=== PATIENT | female | born 1995 | race Two or more races ===

== ENCOUNTER 2019-05-02 09:03 | Inpatient (IN) | payer MEDICAID ==
[~2019-05-02] VITALS: Ht 157.5 cm; Wt 60.6 kg
[2019-05-02 09:50] LABS: Urine Bacteria FEW /hpf (None Seen); Urine Blood Negative /uL (Negative); Urine Mucus FEW (None Seen); Urine Specific Gravity 1.008 (1.001-1.035); Urine WBC <1 /hpf (0 - 5)
[2019-05-02 10:32] LABS: Basophils # (auto) 0 uL; Basophils % (auto) 0.2 % (0.0-2.0); Eosinophils # (auto) 0 uL; Eosinophils % (auto) 0.3 % (0.0-7.0); Mean Corpuscular Hemoglobin 26.8 pg (28.0-32.0); Mean Corpuscular Hgb Conc. 32.5 g/dL (32.0-36.0); Neutrophils % (auto) 78.3 % (37.0-80.0); Nucleated Red Blood Cells % 0.1 %
[2019-05-02 10:35] LABS: Hematocrit 41.3 % (36.0-46.0); Hemoglobin 13.4 g/dL (12.2-16.2); Lymphocytes % (auto) 13.2 % (10.0-50.0); Mean Corpuscular Volume 82.4 fL (80.0-100.0); Monocytes # (auto) 0.6 uL; Neutrophils # (auto) 5.9 uL; Platelet Count (auto) 215 10^3/uL (140-450); Red Blood Cells 5.01 10^6/uL (4.0-5.20); Red Cell Distribution Width 15.1 % (11.8-14.3); White Blood Cell 7.5 10^3/uL (4.4-10.8)
[2019-05-02 10:45] LABS: Alanine Aminotransferase 191 U/L (13-56); Anion Gap 6 (5-15); Aspartate Aminotransferase 382 U/L (15-37); BUN/Creatinine Ratio 7.9; Blood Urea Nitrogen 6 mg/dL (7-18); Calcium 8.7 mg/dL (8.5-10.1); Carbon Dioxide 24 mmol/L (21-32); Chloride 110 mmol/L (98-107); GFR African American 119 mL/min; GFR Non-African American 99 mL/min; Glucose 92 mg/dL (74-106); Potassium 3.8 mmol/L (3.5-5.1); Sodium 140 mmol/L (136-145)
[2019-05-02 10:53] LABS: Alkaline Phosphatase 68 U/L (45-117); Bilirubin, Total 1.6 mg/dL (0.2-1.0); Total Protein 7.7 g/dL (6.4-8.2)
[2019-05-02] MEDS ORDERED: SODIUM CHLORIDE 0.9% 1,000 ML IVB ONE (12:30)
[2019-05-02] MEDS ORDERED: cefTRIAXone 1GM/50ML D5W 50 ML IV ONE (12:30)
[2019-05-02] MEDS ORDERED: MORPHINE SULFATE 4 MG/ML SYR/VIAL IV PRN ×2 (13:45)
[2019-05-02] MEDS: SODIUM CHLORIDE 0.9% 1,000 ML IV SCH ×2 (13:45→23:45)
[2019-05-02 13:46] LABS: INR 0.95 (0.9-1.15); Partial Thromboplastin Time 29.8 sec (23.64-32.05)
[2019-05-02] MEDS: metroNIDAZOLE 500MG/100ML 100 ML IV SCH ×2 (14:17→21:15)
[2019-05-02] MEDS: FAMOTIDINE (10MG/ML) 2ML VL IV SCH (14:17)
--- NOTE | 2019-05-02 16:58 | NUR ---
ER TRANSFER RECEIVED REPORT FROM ER NURSE. PT WAS WHEELED TO ROOM WITH NO DISTRESS. INSTRUCTED PT ON POC AND TO CALL FOR ASSISTANCE PRN.
[2019-05-02 17:17] VITALS: BP 108/66
--- NOTE | 2019-05-02 21:29 | NUR ---
Patient c/o pain to abdomen and both knees, Morphine 2mg given, after Morphine was given patient was yelling saying "my head, my head" holding her head on both sides. Patient's b/p up to 148/78, HR 130's 02 Sat 97% RA. Reassurance given, support given. at bedside. Patient calmed down after a few minutes.
--- NOTE | 2019-05-02 21:38 | NUR ---
Dr. Jones at bedside, informed of reaction to Morphine Sulfate IV.
[2019-05-02 21:44] VITALS: BP 112/73
[2019-05-02] MEDS ORDERED: fentaNYL CITRATE 100 MCG/2 ML VL IM ONE (22:00)
[2019-05-03] MEDS: FAMOTIDINE (10MG/ML) 2ML VL IV SCH ×2 (01:57→13:06)
[2019-05-03 05:33] VITALS: BP 96/59
[2019-05-03 05:36] VITALS: BP 96/59
[2019-05-03] MEDS: metroNIDAZOLE 500MG/100ML 100 ML IV SCH ×3 (06:34→21:34)
[2019-05-03 08:01] LABS: BUN/Creatinine Ratio 7.7; Potassium 3.8 mmol/L (3.5-5.1)
[2019-05-03 08:02] LABS: Bilirubin, Total 1.1 mg/dL (0.2-1.0); Calcium 7.8 mg/dL (8.5-10.1); Total Protein 5.9 g/dL (6.4-8.2)
[2019-05-03 08:30] VITALS: BP 99/45
[2019-05-03] MEDS: cefTRIAXone 1GM/50ML D5W 50 ML IV SCH (08:51)
[2019-05-03] MEDS: SODIUM CHLORIDE 0.9% 1,000 ML IV SCH ×2 (09:00→19:43)
--- NOTE | 2019-05-03 09:33 | NUR ---
Called Nuclear Medicine, phone on voicemail.
--- NOTE | 2019-05-03 10:12 | NUR ---
Paged the House Sup.
--- NOTE | 2019-05-03 10:16 | NUR ---
Called Nuclear Medicine again, phone on voicemail. Left a message to call back for NM HIDA Scan.
--- NOTE | 2019-05-03 10:23 | NUR ---
Dr. Díaz called back. made aware patient has been on NPO after midnight because of pending NM HIDA Scan, no answer at Nuclear Medicine. Dr. Díaz ordered to keep patient NPO for now, he will come over to see the patient.
--- NOTE | 2019-05-03 10:45 | NUR ---
Patient in the bathroom at this time.
[2019-05-03] MEDS: ACETAMINOPHEN/CODEINE#3 (300/30mg) TAB PO PRN ×2 (10:55→15:09)
--- NOTE | 2019-05-03 10:55 | NUR ---
Patient stated her stomach pain level at 10/10 at this time aggravated by her menstrual period. Tylenol #3 given for pain with small sips of water.
--- NOTE | 2019-05-03 12:29 | NUR ---
Patient stated she feels dizzy because she's hungry, stated she needs to eat something. Dr. Díaz made aware, and Nuclear Medicine is not answering, patient has order for HIDA Scan. MD ordered Clear Liquids then NPO after midnight. MD ordered Urine Bacterial Culture.
[2019-05-03 13:00] VITALS: BP 136/81
--- NOTE | 2019-05-03 13:10 | NUR ---
Patient stated she has her menstrual period today, first day. Urine specimen bottle at bedside for urine bacterial culture. Will inform MD.
--- NOTE | 2019-05-03 15:09 | NUR ---
Patient stated her pain level at 10/10 at this time. Tylenol #3 given for pain as ordered. and son at bedside.
[2019-05-03] MEDS: PROMETHAZINE HCL 25 MG/ML 1ML IV PRN (16:14)
--- NOTE | 2019-05-03 16:14 | NUR ---
Patient stated she's nauseous. Phenergan 12.5 mg IVP given for nausea as ordered.
--- NOTE | 2019-05-03 16:43 | NUR ---
Called Laboratory if it's okay to send a urine specimen for Urine Bacterial Culture even if patient has menstrual period today. Laboratory said it's okay but if there's an issue, the Microbiology will call back.
--- NOTE | 2019-05-03 16:43 | NUR ---
Informed the patient to press the call light when she has the urine specimen. and son at bedside.
[2019-05-03 16:59] VITALS: BP 108/73
[2019-05-03 22:00] VITALS: BP 99/61
[2019-05-04] MEDS: FAMOTIDINE (10MG/ML) 2ML VL IV SCH ×2 (02:33→09:48)
[2019-05-04 05:32] VITALS: BP 101/56
[2019-05-04 05:48] LABS: Basophils # (auto) 0 uL; Basophils % (auto) 0.5 % (0.0-2.0); Eosinophils # (auto) 0.1 uL; Eosinophils % (auto) 1.5 % (0.0-7.0); Hematocrit 35.1 % (36.0-46.0); Hemoglobin 11.5 g/dL (12.2-16.2); Lymphocytes # (auto) 1.6 uL; Lymphocytes % (auto) 26.3 % (10.0-50.0); Mean Corpuscular Hemoglobin 27.4 pg (28.0-32.0); Mean Corpuscular Hgb Conc. 32.8 g/dL (32.0-36.0); Mean Corpuscular Volume 83.4 fL (80.0-100.0); Monocytes # (auto) 0.7 uL; Neutrophils # (auto) 3.7 uL; Neutrophils % (auto) 60.7 % (37.0-80.0); Nucleated Red Blood Cells % 0.1 %; Platelet Count (auto) 182 10^3/uL (140-450); Red Cell Distribution Width 15.3 % (11.8-14.3); White Blood Cell 6.1 10^3/uL (4.4-10.8)
[2019-05-04 05:57] LABS: Calcium 7.9 mg/dL (8.5-10.1); Potassium 3.7 mmol/L (3.5-5.1)
[2019-05-04 06:00] LABS: BUN/Creatinine Ratio 9.1
[2019-05-04] MEDS: metroNIDAZOLE 500MG/100ML 100 ML IV SCH ×3 (06:02→22:09)
[2019-05-04] MEDS: SODIUM CHLORIDE 0.9% 1,000 ML IV SCH ×2 (06:02→16:20)
[2019-05-04 08:35] VITALS: BP 131/89
[2019-05-04] MEDS: cefTRIAXone 1GM/50ML D5W 50 ML IV SCH (09:01)
[2019-05-04 10:04] LABS: Hepatitis B Surface Antibody Negative
[2019-05-04 10:18] LABS: Hepatitis A Total Antibody Positive
[2019-05-04 12:30] VITALS: BP 113/61
[2019-05-04] MEDS ORDERED: ceFAZolin 1GM/50ML 50 ML IV ONE (14:02)
--- NOTE | 2019-05-04 14:04 | NUR ---
TAKEN TO PRE OP VIA BED AND SON AT BEDSIDE. REPORT GIVEN TO SCOTT Bhatia
[2019-05-04] MEDS: POVIDONE IODINE 5% TOPICAL CREAM TOP ONE ×2 (14:05→14:55)
[2019-05-04] MEDS ORDERED: MIDAZOLAM HCL 1MG/1ML-2 ML VIAL ONE (14:17)
[2019-05-04] MEDS ORDERED: ROCURONIUM 10MG/ML 10ML VIAL IV ONE (14:17)
[2019-05-04] MEDS ORDERED: fentaNYL CITRATE 100 MCG/2 ML VL ONE ×2 (14:17→15:25)
[2019-05-04] MEDS ORDERED: PROPOFOL 10 MG/ML 20 ML IV ONE (14:26)
[2019-05-04] MEDS: fentaNYL CITRATE 100 MCG/2 ML VL IV PRN ×4 (15:30→16:00)
[2019-05-04] MEDS ORDERED: ePHEDrine SULFATE 50 MG/ML AMP IV PRN (15:30)
[2019-05-04] MEDS ORDERED: hydrALAZINE HCL 20 MG/ML VL IV PRN (15:30)
[2019-05-04] MEDS ORDERED: ONDANSETRON HCL 4 MG/2 ML VIAL IV PRN (15:30)
--- NOTE | 2019-05-04 16:18 | NUR ---
BACK TO ROOM 3 DRESSINGS INTACT CLEAN AND DRY AT BEDSIDE. PATIENT STATES PAIN 10/10
[2019-05-04] MEDS: PROMETHAZINE HCL 25 MG/ML 1ML IV PRN (16:44)
[2019-05-04 17:01] LABS: Hepatitis B Core Total AB Negative
[2019-05-04 17:02] LABS: Hepatitis B Surface Antigen Negative (Negative); Hepatitis C Antibody Negative (Negative)
--- NOTE | 2019-05-04 19:00 | NUR ---
Opening Shift Note Assumed care of patient, awake and alert. Family on bedside. Abdominal pain 5/10. Pt will ask for pain meds when is getting worse Instructed on POC and to call for assist PRN, will continue to monitor for changes Q1hr and PRN.
[2019-05-04] MEDS: ACETAMINOPHEN/CODEINE#3 (300/30mg) TAB PO PRN ×2 (19:39→23:46)
[2019-05-04 22:00] VITALS: BP 103/51
[2019-05-05] MEDS: SODIUM CHLORIDE 0.9% 1,000 ML IV SCH ×3 (01:45→21:45)
[2019-05-05] MEDS: FAMOTIDINE (10MG/ML) 2ML VL IV SCH ×2 (02:28→14:01)
[2019-05-05 05:03] VITALS: BP 94/47
[2019-05-05] MEDS: ACETAMINOPHEN/CODEINE#3 (300/30mg) TAB PO PRN ×4 (05:38→20:16)
[2019-05-05 05:57] LABS: Calcium 8.1 mg/dL (8.5-10.1); Potassium 4.2 mmol/L (3.5-5.1)
[2019-05-05] MEDS: metroNIDAZOLE 500MG/100ML 100 ML IV SCH ×3 (06:00→21:20)
[2019-05-05 06:03] LABS: Bilirubin, Total 0.5 mg/dL (0.2-1.0); Total Protein 6.1 g/dL (6.4-8.2)
[2019-05-05 06:09] LABS: Basophils # (auto) 0 uL; Basophils % (auto) 0.1 % (0.0-2.0); Eosinophils # (auto) 0 uL; Eosinophils % (auto) 0.1 % (0.0-7.0); Hematocrit 34.7 % (36.0-46.0); Hemoglobin 11.5 g/dL (12.2-16.2); Lymphocytes # (auto) 1.2 uL; Lymphocytes % (auto) 13.4 % (10.0-50.0); Mean Corpuscular Hemoglobin 27.6 pg (28.0-32.0); Mean Corpuscular Volume 83.5 fL (80.0-100.0); Monocytes # (auto) 0.8 uL; Monocytes % (auto) 8.9 % (0.0-12.0); Neutrophils # (auto) 7.2 uL; Neutrophils % (auto) 77.5 % (37.0-80.0); Nucleated Red Blood Cells % 0.1 %; Platelet Count (auto) 204 10^3/uL (140-450); Red Blood Cells 4.15 10^6/uL (4.0-5.20); Red Cell Distribution Width 15.2 % (11.8-14.3); White Blood Cell 9.3 10^3/uL (4.4-10.8)
--- NOTE | 2019-05-05 07:30 | NUR ---
Opening Shift Note Assumed care of patient, awake and alert. No S/S of distress/SOB or pain. Instructed on POC and to call for assist PRN, will continue to monitor for changes Q1hr and PRN.
[2019-05-05 09:02] VITALS: BP 95/48
[2019-05-05] MEDS: cefTRIAXone 1GM/50ML D5W 50 ML IV SCH (10:22)
--- NOTE | 2019-05-05 11:10 | NUR ---
MD TIEN HERNANDEZ AT BEDSIDE. NO NEW ORDERS AT THIS TIME
--- NOTE | 2019-05-05 11:49 | NUR ---
Nutrition Assessment Notes please see attached link for complete assessment Est. Needs BW (59 kg): 7913-5749 kcal (25-30 kcal/kgBW), 59-70 gms pro (1.0-1.2 gms/kgBW). Will continue to monitor pertinent labs and reassess nutrient need prn Addendum: 05/05/19 at [address] Amended: Links added.
[2019-05-05 12:30] VITALS: BP 100/66
[2019-05-05] MEDS: Ensure HIGH Protein Chocolate 8oz Bottle PO SCH ×2 (14:00→18:00)
[2019-05-05 16:57] VITALS: BP 95/53
--- NOTE | 2019-05-05 17:50 | NUR ---
IV insertion IV access obtained, via clean sterile technique by inserting 20 gauge catheter at LEFT AC after 2 attempt(s). IV secured properly. No trauma to site. Patient tolerated well. IV removal IV DC'd with clean sterile technique, catheter fully intact. Pressure dressing applied to site. Patient tolerated well.
--- NOTE | 2019-05-05 19:35 | NUR ---
Opening Shift Note Assumed care of patient, awake and alert. No S/S of distress/SOB or pain. Family at bedside. Bed locked in lowest position, side rails upx2, call light within reach. Instructed on POC and to call for assist PRN, will continue to monitor for changes Q1hr and PRN.
[2019-05-05 22:00] VITALS: BP 90/45
[2019-05-06] MEDS: FAMOTIDINE (10MG/ML) 2ML VL IV SCH ×2 (01:19→13:24)
[2019-05-06 05:00] VITALS: BP 110/65
[2019-05-06] MEDS: ACETAMINOPHEN/CODEINE#3 (300/30mg) TAB PO PRN ×2 (05:02→10:54)
[2019-05-06] MEDS: metroNIDAZOLE 500MG/100ML 100 ML IV SCH ×2 (06:00→13:24)
[2019-05-06 06:02] LABS: Basophils # (auto) 0 uL; Basophils % (auto) 0.4 % (0.0-2.0); Eosinophils # (auto) 0.1 uL; Eosinophils % (auto) 0.9 % (0.0-7.0); Hematocrit 34.5 % (36.0-46.0); Hemoglobin 11.2 g/dL (12.2-16.2); Lymphocytes # (auto) 2.3 uL; Lymphocytes % (auto) 37.9 % (10.0-50.0); Mean Corpuscular Hemoglobin 27.3 pg (28.0-32.0); Mean Corpuscular Hgb Conc. 32.6 g/dL (32.0-36.0); Mean Corpuscular Volume 83.8 fL (80.0-100.0); Monocytes # (auto) 0.7 uL; Monocytes % (auto) 11.7 % (0.0-12.0); Neutrophils % (auto) 49.1 % (37.0-80.0); Nucleated Red Blood Cells % 0.1 %; Platelet Count (auto) 196 10^3/uL (140-450); Red Blood Cells 4.12 10^6/uL (4.0-5.20); Red Cell Distribution Width 15.4 % (11.8-14.3); White Blood Cell 6.2 10^3/uL (4.4-10.8)
[2019-05-06 06:23] LABS: Calcium 7.7 mg/dL (8.5-10.1); Potassium 3.6 mmol/L (3.5-5.1)
[2019-05-06 06:26] LABS: BUN/Creatinine Ratio 11.9; Bilirubin, Total 0.3 mg/dL (0.2-1.0); Total Protein 5.8 g/dL (6.4-8.2)
[2019-05-06 09:09] VITALS: BP 102/64
[2019-05-06] MEDS: cefTRIAXone 1GM/50ML D5W 50 ML IV SCH (09:17)
[2019-05-06] MEDS: SODIUM CHLORIDE 0.9% 1,000 ML IV SCH (09:18)
[2019-05-06] MEDS: Ensure HIGH Protein Chocolate 8oz Bottle PO SCH ×2 (09:18→12:19)
[2019-05-06 14:02] VITALS: BP 113/63
--- NOTE | 2019-05-06 14:53 | NUR ---
Discharge instructions given as ordered. Encourage to follow up with PMD (Follow up with Dr. Jones in 1-2 weeks Address : [id number] [place] [address] Rd, [place], [address] #[phone] Ext : [phone] Patient should be referred to [facility] Urgent care 8AM-8PM #[phone] Ext [phone] Address : [address] [place] [address] Rd, [place], [address] Urgent care coupon given to patient. ) as instructed. All questions and concerns addressed. Patient verbalized understanding. Medication reconciliation form completed and copy given to patient. IV removed with catheter intact, pressure dressing applied. Patient taken to vehicle via wheelchair with all personal belongings, accompanied by staff and family member. No distress noted at time of departure.
== END 2019-05-06 14:55 | disposition home or self-care (01) | DRG 263 ==
LOC: ER 09:03 → WEST WING 09:04
PROVIDERS: ADMIT Internal Medicine; ATTEND Internal Medicine
PROC: 0FT44ZZ Resection of Gallbladder, Percutaneous Endoscopic Approach (ICD-10-PCS; principal; 2019-05-04 14:15)
DX: K80.12 Calculus of gallbladder with acute and chronic cholecystitis without obstruction (principal); E87.2 Acidosis; R65.10 Systemic inflammatory response syndrome (SIRS) of non-infectious origin without acute organ dysfunction; E44.0 Moderate protein-calorie malnutrition; B15.9 Hepatitis A without hepatic coma; N39.0 Urinary tract infection, site not specified; Z87.442 Personal history of urinary calculi; Z82.49 Family history of ischemic heart disease and other diseases of the circulatory system; Z83.3 Family history of diabetes mellitus; Z88.5 Allergy status to narcotic agent; Z68.24 Body mass index [BMI] 24.0-24.9, adult
CPT/HCPCS: 36415; 76705; 80048; 80053; 81001; 81025; 82150; 83690; 84484; 85025; 85610; 85730; 86704; 86706; 86708; 86803; 86850; 86900; 86901; 87086; 87340; 94761; 96365; 96375; G0378; J0690; J0696; J2250; J2704; J3490

== ENCOUNTER 2019-06-16 09:52 | Inpatient (IN) | payer MEDICAID ==
[~2019-06-16] VITALS: Ht 157.5 cm; Wt 61.9 kg
[2019-06-16] MEDS ORDERED: PANTOPRAZOLE 40 MG/10 ML VIAL INJ IV STA (10:36)
[2019-06-16] MEDS ORDERED: SODIUM CHLORIDE 0.9% 1,000 ML IVB ONE (10:36)
[2019-06-16 10:49] LABS: Urine Bacteria NONE SEEN /hpf (None Seen); Urine Blood Negative /uL (Negative); Urine Mucus FEW (None Seen); Urine Specific Gravity 1.009 (1.001-1.035); Urine WBC 1 /hpf (0 - 5)
[2019-06-16 10:58] LABS: Basophils # (auto) 0 uL; Eosinophils # (auto) 0.1 uL; Eosinophils % (auto) 0.9 % (0.0-7.0); Mean Corpuscular Volume 83.4 fL (80.0-100.0); Monocytes # (auto) 0.6 uL
[2019-06-16 11:01] LABS: Basophils % (auto) 0.5 % (0.0-2.0); Hemoglobin 13.2 g/dL (12.2-16.2); Lymphocytes # (auto) 1.4 uL; Lymphocytes % (auto) 19.2 % (10.0-50.0); Mean Corpuscular Hemoglobin 26.9 pg (28.0-32.0); Mean Corpuscular Hgb Conc. 32.2 g/dL (32.0-36.0); Neutrophils # (auto) 5.4 uL; Neutrophils % (auto) 71.4 % (37.0-80.0); Platelet Count (auto) 248 10^3/uL (140-450); Red Blood Cells 4.92 10^6/uL (4.0-5.20); Red Cell Distribution Width 14.7 % (11.8-14.3); White Blood Cell 7.5 10^3/uL (4.4-10.8)
[2019-06-16] MEDS ORDERED: IOHEXOL 300 MG/ML 100ML BOTTLE IJ ONE (11:17)
[2019-06-16 11:25] LABS: Albumin 4.1 g/dL (3.4-5.0); Calcium 9.3 mg/dL (8.5-10.1); Potassium 3.9 mmol/L (3.5-5.1)
[2019-06-16 11:28] LABS: BUN/Creatinine Ratio 8.8; Bilirubin, Total 0.4 mg/dL (0.2-1.0); Total Protein 7.7 g/dL (6.4-8.2)
[2019-06-16] MEDS ORDERED: MORPHINE SULF INJ 2 MG/ML SYRINGE 1ML IV PRN (13:15)
[2019-06-16] MEDS ORDERED: metroNIDAZOLE 500MG/100ML 100 ML IV ONE (13:15)
[2019-06-16] MEDS ORDERED: MEPERIDINE HCL (25 MG/ML) 1ML VIAL IV PRN (14:30)
[2019-06-16] MEDS: VANCOMYCIN HCL 125MG/5ML ORAL SOL PO SCH ×3 (14:59→21:46)
[2019-06-16] MEDS: D5W/SOD CHL 0.45%/KCL 20MEQ 1,000 ML IV SCH ×2 (16:52→23:33)
--- NOTE | 2019-06-16 18:35 | NUR ---
[facility] to tele/MS after SBAR received. Patient oriented to FRAN DALAL, primary RN, unit, room, bed, and unit policies regarding patient care and visiting hours. Patient is alert and awake sitting up in bed. Patient is on room air with even and unlabored respirations. no S/S of distress/SOB. Pt C/O abd pain 8/10 and nausea. WIll give medication. Bed is in lowest position, wheels are locked, side rails up x2, and call light is within reach. Patient weighed by bed scale and encouraged to call if they need something. All questions and concerns addressed, patient verbalized understanding.
[2019-06-16] MEDS: HYDROcodone-ACET 5/325MG TAB PO PRN (18:55)
[2019-06-16] MEDS: ONDANSETRON HCL 4 MG/2 ML VIAL IV PRN (18:59)
--- NOTE | 2019-06-16 19:30 | NUR ---
REPORT GIVEN REPORT GIVEN TO SHIRA ORTEGA. REMAINING OF ADMIT AND BELONGINGS FORM ENDORSED. CARE ENDORSED.
--- NOTE | 2019-06-16 20:15 | NUR ---
open note assumed care of pt. upon entering room, pt awake, alert and oriented x4. pt on room air no distress noted or expressed. pt denies any pain at this time. pt updated on plan of care, no questions at this time. bed locked, low and 2x rails up. pt aware of clear liquid diet. call light in reach, this nurse encouraged pt to call as needed, will round on pt q1hr and prn.
[2019-06-16] MEDS: FAMOTIDINE (10MG/ML) 2ML VL IV SCH (21:46)
[2019-06-16] MEDS: metroNIDAZOLE 500MG/100ML 100 ML IV SCH (21:48)
--- NOTE | 2019-06-16 21:57 | NUR ---
flagyl that was documented as started in ED was not given, as no pump was available upon arriving to med surg unit. will non admin 2200 dose and run previously unadministered dose now. will resume regularly scheduled administration at 0600 dose.
[2019-06-16 22:00] VITALS: BP 100/62
[2019-06-17] MEDS: ONDANSETRON HCL 4 MG/2 ML VIAL IV PRN ×2 (04:18→21:01)
[2019-06-17] MEDS: HYDROcodone-ACET 5/325MG TAB PO PRN (04:18)
[2019-06-17 05:00] VITALS: BP 111/61
[2019-06-17] MEDS: VANCOMYCIN HCL 125MG/5ML ORAL SOL PO SCH ×3 (06:30→23:49)
[2019-06-17] MEDS: PROMETHAZINE HCL 6.25 MG/5 ML ORAL SYRUP PO ONE (06:30)
[2019-06-17] MEDS: metroNIDAZOLE 500MG/100ML 100 ML IV SCH ×3 (06:30→22:21)
--- NOTE | 2019-06-17 07:30 | NUR ---
Opening Shift Note Assumed care of patient, awake and alert. No S/S of distress/SOB or pain. Instructed on POC and to call for assist PRN, will continue to monitor for changes Q1hr and PRN. Fall precautions in place per safety protocol.
[2019-06-17 08:00] VITALS: BP 108/57
[2019-06-17] MEDS ORDERED: PROMETHAZINE HCL 6.25 MG/5 ML ORAL SYRUP PO ONE (08:15)
[2019-06-17] MEDS: D5W/SOD CHL 0.45%/KCL 20MEQ 1,000 ML IV SCH ×2 (09:15→21:14)
[2019-06-17] MEDS ORDERED: LEVOFLOXACIN 500MG 100 ML IV SCH (10:00)
[2019-06-17] MEDS: FLORASTOR (S. BOULARDII) 250 MG CAP PO SCH (10:13)
[2019-06-17] MEDS: FAMOTIDINE (10MG/ML) 2ML VL IV SCH ×2 (10:13→22:21)
[2019-06-17 12:00] VITALS: BP 97/57
--- NOTE | 2019-06-17 16:10 | NUR ---
. at bedside MD. Hadley at bedside,. aware of patient status including, vomiting, diarrhea, and low BP. New orders to advance diet to full liquids received. Pending Cdiff results at this time. Will cont to monitor patient.
[2019-06-17 17:00] VITALS: BP 96/42
--- NOTE | 2019-06-17 19:22 | NUR ---
Endorsed care Care endorsed care to JORDAN Dunbar. Patient shows no signs of distress, sob, or pain at this time.
--- NOTE | 2019-06-17 19:50 | NUR ---
Opening Shift Note Received report and assumed care of patient. Patient is awake and alert. Patient currently complains of nausea and headache, will administer antiemetic and pain medications per MD order. No signs or symptoms of distress noted. Instructed patient on plan of care and to call for assistance as needed, call light within reach. Will continue to monitor.
[2019-06-17 20:00] VITALS: BP 107/62
--- NOTE | 2019-06-17 21:04 | NUR ---
Demerol Pain Medication Incomplete Diluted Demerol 25mg/ml in 8ml of 0.9 NaCl. Began administration of pain medication, patient stated she started to fell dizzy and wanted pain medication administration to be stopped. Medication was stopped with 5.5ml remaining. Patient does not want the rest of the medication administered. Medication wasted in med room with second RNMonie.
[2019-06-17 22:00] VITALS: BP 107/62
--- NOTE | 2019-06-17 22:40 | NUR ---
Rounds Patient is currently asleep. No signs or symptoms of distress noted. Visible chest rise and fall. Will continue to monitor.
[2019-06-18 05:00] VITALS: BP 85/52
[2019-06-18] MEDS: D5W/SOD CHL 0.45%/KCL 20MEQ 1,000 ML IV SCH ×2 (05:15→09:52)
[2019-06-18 06:30] VITALS: BP 92/41
[2019-06-18] MEDS: metroNIDAZOLE 500MG/100ML 100 ML IV SCH ×2 (06:49→13:43)
[2019-06-18] MEDS: VANCOMYCIN HCL 125MG/5ML ORAL SOL PO SCH ×2 (06:49→11:40)
[2019-06-18 06:51] LABS: Basophils # (auto) 0 uL; Basophils % (auto) 0.6 % (0.0-2.0); Eosinophils # (auto) 0.1 uL; Eosinophils % (auto) 1.4 % (0.0-7.0); Hematocrit 36.1 % (36.0-46.0); Hemoglobin 11.9 g/dL (12.2-16.2); Lymphocytes # (auto) 1.5 uL; Lymphocytes % (auto) 28.9 % (10.0-50.0); Mean Corpuscular Hemoglobin 27.3 pg (28.0-32.0); Mean Corpuscular Volume 82.6 fL (80.0-100.0); Monocytes # (auto) 0.6 uL; Monocytes % (auto) 10.9 % (0.0-12.0); Neutrophils # (auto) 3.1 uL; Neutrophils % (auto) 58.2 % (37.0-80.0); Platelet Count (auto) 207 10^3/uL (140-450); Red Blood Cells 4.37 10^6/uL (4.0-5.20); Red Cell Distribution Width 14.4 % (11.8-14.3); White Blood Cell 5.3 10^3/uL (4.4-10.8)
[2019-06-18] MEDS: ACETAMINOPHEN 500 MG TAB PO PRN ×2 (06:56→13:47)
[2019-06-18 07:09] LABS: BUN/Creatinine Ratio 4.9; Calcium 8.4 mg/dL (8.5-10.1); Potassium 3.8 mmol/L (3.5-5.1)
--- NOTE | 2019-06-18 07:30 | NUR ---
Opening Note Received report from assistant casino shift manager RN. Patient is awake, alert and oriented x4. No signs or symptoms of distress noted at this time. Patient is on room air, respirations even and unlabored. Reviewed plan of care with patient, patient verbalized understanding. Bed in low and locked position, call light within reach. Will continue to monitor Q1 hour and PRN.
[2019-06-18 09:00] VITALS: BP 96/50
[2019-06-18] MEDS: FLORASTOR (S. BOULARDII) 250 MG CAP PO SCH (09:52)
[2019-06-18] MEDS: FAMOTIDINE (10MG/ML) 2ML VL IV SCH (09:55)
[2019-06-18 11:58] LABS: Hepatitis A Ab IgM Negative
[2019-06-18 12:25] LABS: Hepatitis B Core IgM Negative
[2019-06-18 12:39] LABS: Hepatitis B Surface Antigen Negative (Negative)
[2019-06-18 12:58] LABS: Hepatitis C Antibody Negative (Negative)
[2019-06-18 13:00] VITALS: BP 98/56
--- NOTE | 2019-06-18 13:32 | NUR ---
Dr. Ontiveros at bedside Discussing plan of care with patient. Will continue to monitor Q1 hour and PRN.
[2019-06-18] MEDS ORDERED: METR500T PO (14:10)
[2019-06-18] MEDS ORDERED: SACC1CAP3 PO (14:10)
[2019-06-18] MEDS ORDERED: CIPR-217 PO (14:10)
[2019-06-18] MEDS ORDERED: FAM20T PO (14:10)
[2019-06-18] MEDS ORDERED: ONDA-144 PO (14:10)
[2019-06-18 15:40] VITALS: BP_SYST 56
[2019-06-18] MEDS: ONDANSETRON HCL 4 MG/2 ML VIAL IV PRN (17:04)
--- NOTE | 2019-06-18 17:41 | NUR ---
Discharge Discharge instructions given as ordered. Encourage to follow up with PMD as instructed. All questions and concerns addressed. Patient verbalized understanding. Medication reconciliation form completed and copy given to patient. New prescriptions given to patient. IV catheter removed, catheter intact, pressure dressing applied. Patient refused wheelchair. Patient ambulated to private vehicle, with all personal belongings, accompanied by family. No signs or symptoms of distress noted at this time.
== END 2019-06-18 16:50 | disposition home or self-care (01) | DRG 249 ==
LOC: ER 09:52 → OVERFLOW 09:53 → WEST WING 18:26
PROVIDERS: ADMIT Nurse Practitioner Acute Care; ATTEND Hospitalist
DX: K52.9 Noninfective gastroenteritis and colitis, unspecified (principal); Z79.899 Other long term (current) drug therapy; Z83.3 Family history of diabetes mellitus; Z88.5 Allergy status to narcotic agent; Z90.49 Acquired absence of other specified parts of digestive tract
CPT/HCPCS: 36415; 74177; 80048; 80053; 80074; 81001; 83690; 85025; 87045; 87081; 87427; 87493; C9113; G0378; J2405; J3490

== ENCOUNTER 2024-07-27 10:01 | Emergency (ER) | payer MEDICAID ==
[~2024-07-27] VITALS: Ht 160 cm; Wt 66.9 kg
[~2024-07-27 10:01] MED LIST: CIPR500T4 PO; FAMO20TA10 PO; METR500T PO; ONDA-144 PO; SACC1CAP3 PO
[2024-07-27 10:38] LABS: Urine Bacteria None Seen /hpf (None Seen)
[2024-07-27 11:11] LABS: Urine Blood Negative /uL (Negative); Urine Budding Yeast OCCASIONAL /hpf (None Seen); Urine Clarity Ex.Turbid (Clear); Urine Color Dark-Red (Yellow); Urine Mucus FEW (None Seen); Urine Protein, UAD TRACE (Negative); Urine Specific Gravity 1.021 (1.001-1.035); Urine Squamous Epithelial Cell MANY /hpf (<5); Urine Urobilinogen Normal (Negative); Urine WBC 18 /hpf (0 - 5)
--- NOTE | 2024-07-27 14:12 | DVH ---
Exam: CT CT AB PEL WO CON-NO ORAL OR IV History: right flank pain Comparison Study: None available at time of dictation. TECHNIQUE: Multidetector CT of the abdomen was performed from lung bases to pubic symphysis. Imaging was performed without IV contrast. Axial, coronal and sagittal multiplanar reformats were obtained fr om the axial data set by the technologist. Radiation Dose Information: CT Dose: CTDI volume is 6.42 mGy. Dose-length product is 314.02 mGy*cm FINDINGS: Evaluation of solid organs is limited due to lack of intravenous contrast use. Findings: Lung Bases: No acute or significant lung base finding. Normal heart size. No pleural or pericardial effusion. Liver: The liver is normal in size. No focal lesions. Gallbladder and Biliary Tree: Gallbladder has been surgically removed. Spleen: Unremarkable Pancreas: The pancreas is grossly normal in appearance. Adrenal Glands: Unremarkable Kidneys: Kidneys are grossly normal without calculi or hydronephrosis. Bladder: Grossly unremarkable for degree of distention. Bowel: The stomach is grossly normal in appearance. Small bowel and colon are normal in caliber and d istribution. Stool noted throughout the colon. The appendix is not visualized; however, no secondary findings of acute appendicitis identified. Ascites: Absent Lymphadenopathy: No mesenteric, retroperitoneal or periportal lymphadenopathy. Abdominal Wall and Mesentery: Unremarkable. Vasculature: The visualized abdominal aorta is normal in size and caliber. Evaluation of abdominal a nd pelvic vessels is limited due to lack of intravenous contrast. Pelvic Organs: Unremarkable Musculoskeletal: No aggressive focal bony lesions, acute fractures or dislocation. Soft tissues: Unremarkable IMPRESSION: 1. Gallbladder has been surgically removed. 2. No CT findings of bowel obstruction 3. No nephrolithiasis or hydronephrosis. 4. Stool noted throughout the colon Radiation optimization: All CT scans at this facility use at least one of these dose optimization frank hniques: automated exposure control mA and/or kV adjustment per patient size (includes targeted exam s where dose is matched to clinical indication) or iterative reconstruction. HS:Y
[2024-07-27 14:30] LABS: Basophils # (auto) 0.1 10 ^3/uL (0-0.2); Basophils % (auto) 0.7 % (0.0-2.0); Eosinophils # (auto) 0.2 10 ^3/uL (0-0.8); Eosinophils % (auto) 2.1 % (0.0-7.0); Hematocrit 41.9 % (36.0-46.0); Lymphocytes # (auto) 2.1 10 ^3/uL (0.4-5.4); Lymphocytes % (auto) 26.4 % (10.0-50.0); Mean Corpuscular Hemoglobin 27.3 pg (28.0-32.0); Mean Corpuscular Hgb Conc. 33.4 g/dL (32.0-36.0); Mean Corpuscular Volume 81.6 fL (80.0-100.0); Monocytes # (auto) 0.7 10 ^3/uL (0-1.3); Monocytes % (auto) 8.7 % (0.0-12.0); Neutrophils # (auto) 4.9 10 ^3/uL (1.6-8.6); Neutrophils % (auto) 62.1 % (37.0-80.0); Nucleated Red Blood Cells % 0.1 %; Platelet Count (auto) 280 10^3/uL (140-450); Red Blood Cells 5.13 10^6/uL (4.0-5.20); White Blood Cell 7.9 10^3/uL (4.4-10.8)
[2024-07-27 14:38] LABS: Potassium 4.4 mmol/L (3.5-5.1); Sodium 141 mmol/L (136-145)
[2024-07-27 14:39] LABS: Anion Gap 8 (5-15); Carbon Dioxide 26 mmol/L (20-31)
[2024-07-27 14:44] LABS: BUN/Creatinine Ratio 9.2 (10.0-20.0); Glucose 78 mg/dL (74-106)
[2024-07-27 14:49] LABS: Blood Urea Nitrogen 7 mg/dL (9-23); Chloride 107 mmol/L (98-107)
[2024-07-27] MEDS ORDERED: CEFD300C2 PO (15:30)
--- NOTE | 2024-07-27 15:44 | ED.PDOC ---
General HPI Comments 28y F who presents to the ED for chief complaint of urinary issues. Pt states she has been having dysuria and burning with associated R sided flank pain. Pt states she has been haivng urinary symptoms for the past 3 days and states she has been having flank pain for the past 1 month. pt otherwise denies fever, hematuria or any associated symptoms. Pt denies any other symptoms at this time. Chief Complaint: Urinary Time Seen by MD: 15:00 Primary Care Provider: GAB MIRANDA Reviewed notes: Nurses Notes Allergies: Coded Allergies: Morphine (Verified Allergy, Unknown, 07/27/24) Home Meds Active Scripts Cefdinir (Cefdinir) 300 Mg Cap, 1 CAP PO BID for 7 Days, #14 CAP Prov:ARNALDO LEO MD 07/27/24 Ondansetron (Zofran) 4 Mg Tab, 1 TAB PO Q6HR PRN, #20 TAB Prov:OPAL MICHELLE MD 06/18/19 Famotidine (PEPCID TABLET) 20 Mg Tb, 20 MG PO BID for 30 Days, #60 TAB Prov:OPAL MICHELLE MD 06/18/19 Metronidazole (Flagyl) 500 Mg Tab, 500 MG PO Q12HR for 7 Days, #14 TAB Prov:OPAL MICHELLE MD 06/18/19 Ciprofloxacin Hcl (Ciprofloxacin Hcl) 500 Mg Tab, 1 TAB PO BID, #14 TAB Prov:OPAL MICHELLE MD 06/18/19 Yeast (S. Boulardii)(S. Cerevi (Probiotic) 250 Mg Cap, 250 MG PO DAILY for 30 Days, #30 CAP Prov:OPAL MICHELLE MD 06/18/19 Information Source: Patient Mode of Arrival: Ambulatory Brought in by: self Past Medical History PAST MEDICAL HISTORY: Denies Surgical History: Cholecystectomy, PHOTOGRAPH ENLARGER History: No Pertinent PHOTOGRAPH ENLARGER History Family History Family History: Family hx of DM, Family hx of HTN Social History Smoker: Non-Smoker Alcohol: Denies ETOH Use Drugs: Denies Drug Use Lives In: Home Constitutional: denies: chills, diaphoresis, fatigue, fever, malaise, sweats, weakness, others EENTM: denies: blurred vision, double vision, ear bleeding, ear discharge, ear drainage, ear pain, ear ringing, eye pain, eye redness, hearing loss, mouth pain, mouth swelling, nasal discharge, nose bleeding, nose congestion, nose pain, photophobia, tearing, throat pain, throat swelling, voice changes, others Respiratory: denies: cough, hemoptysis, orthopnea, SOB at rest, shortness of breath, SOB with excertion, stridor, wheezing, others Cardiovascular: denies: chest pain, dizzy spells, diaphoresis, Dyspnea on exertion, edema, irregular heart beat, left arm pain, lightheadedness, palpitations, PND, syncope, others Gastrointestinal: denies: abdomen distended, abdominal pain, blood streaked bowels, constipated, diarrhea, dysphagia, difficulty swallowing, hematemesis, melena, nausea, poor appetite, poor fluid intake, rectal bleeding, rectal pain, vomiting, others Genitourinary: reports: burning, dysuria, flank pain; denies: abnormal vagina bleeding, dyspareunia, frequency, hematuria, incontinence, pain, , vagina discharge, urgency, others Neurological: denies: dizziness, fainting, headache, left sided numbness, left sided weakness, numbness, paresthesia, pre-existing deficit, right sided numbness, right sided weakness, seizure, speech problems, tingling, tremors, weakness, others Musculoskeletal: denies: back pain, gout, joint pain, joint swelling, muscle pain, muscle stiffness, neck pain, others Integumetry: denies: bruises, change in color, change in hair/nails, dryness, laceration, lesions, lumps, rash, wounds, others Allergic/Immunocompromised: denies: Difficulty Healing, Frequent Infections, Hives, Itching, others Hematologic/Lymphatic: denies: anemia, blood clots, easy bleeding, easy bruising, swollen glands, others Endocrine: denies: excessive hunger, excessive sweating, excessive thirst, excessive urination, flushing, intolerance to cold, intolerance to heat, unexplained weight gain, unexplained weight loss, others Psychiatric: denies: anxiety, bipolar disorder, depression, hopeless, panic disorder, schizophrenia, sleepless, suicidal, others All Other Systems: Reviewed and Negative Physical Exam General Appearance: No Apparent Distress, Normal HEENT: Normal ENT Inspection, Pharynx Normal, TMs Normal Neck: Full Range of Motion, Non-Tender, Normal, Normal Inspection Respiratory: Chest Non-Tender, Lungs Clear, No Accessory Muscle Use, No Respiratory Distress, Normal Breath Sounds Cardiovascular: No Edema, No JVD, No Murmur, No Gallop, Normal Peripheral Pulses, Regular Rate/Rhythm Breast Exam: Deferred Gastrointestinal: Other (R sided CVA tenderness) Genitalia: Deferred Pelvic: Deferred Rectal: Deferred Extremities: No calf tenderness, Normal capillary refill, Normal inspection, Normal range of motion, Non-tender, No pedal edema Musculoskeletal : Apperance: Normal Neurologic: Alert, windlace machine operator II-XII nml as Tested, No Motor Deficits, Normal Affect, Normal Mood, No Sensory Deficits Cerebellar Function: Normal Reflexes: Normal Skin: Dry, Normal Color, Warm Lymphatic: No Adenopathy Was a procedure done? Was a procedure done?: No Differential Diagnosis Kidney stone (Female): N/A Kidney stone (Male): N/A Penile/Scrotal: N/A Urinary Problem (Male): N/A Urinary Problem (Female): PID, Pyelonephritis, UTI X-Ray, Labs, Meds, VS Vital Signs Date Time Temp Pulse Resp B/P (MAP) Pulse Ox O2 Delivery O2 Flow Rate FiO2 07/27/24 16:28 98.0 83 17 117/71 (86) 99 98.0 07/27/24 16:28 83 17 99 Room Air* 0 21 07/27/24 10:08 98.7 88 16 109/73 (85) 99 Lab Test 07/27/24 13:55 07/27/24 10:20 Range/Units White Blood Count 7.9 4.4-10.8 10^3/uL Red Blood Count 5.13 4.0-5.20 10^6/uL Hemoglobin 14.0 12.2-16.2 g/dL Hematocrit 41.9 36.0-46.0 % Mean Corpuscular Volume 81.6 80.0-100.0 fL Mean Corpuscular Hemoglobin 27.3 L 28.0-32.0 pg Mean Corpuscular Hemoglobin Concent 33.4 32.0-36.0 g/dL Red Cell Distribution Width 15.0 H 11.8-14.3 % Platelet Count 280 140-450 10^3/uL Mean Platelet Volume 10.2 6.9-10.8 fL Neutrophils (%) (Auto) 62.1 37.0-80.0 % Lymphocytes (%) (Auto) 26.4 10.0-50.0 % Monocytes (%) (Auto) 8.7 0.0-12.0 % Eosinophils (%) (Auto) 2.1 0.0-7.0 % Basophils (%) (Auto) 0.7 0.0-2.0 % Neutrophils # (Auto) 4.9 1.6-8.6 10 ^3/uL Lymphocytes # (Auto) 2.1 0.4-5.4 10 ^3/uL Monocytes # (Auto) 0.7 0-1.3 10 ^3/uL Eosinophils # (Auto) 0.2 0-0.8 10 ^3/uL Basophils # (Auto) 0.1 0-0.2 10 ^3/uL Nucleated Red Blood Cells 0.1 % Sodium Level 141 136-145 mmol/L Potassium Level 4.4 3.5-5.1 mmol/L Chloride Level 107 98-107 mmol/L Carbon Dioxide Level 26 20-31 mmol/L Anion Gap 8 5-15 Blood Urea Nitrogen 7 L 9-23 mg/dL Creatinine 0.76 0.550-1.02 mg/dL Glomerular Filtration Rate Calc 108 >90 mL/min BUN/Creatinine Ratio 9.2 L 10.0-20.0 Serum Glucose 78 74-106 mg/dL Calcium Level 10.0 8.7-10.4 mg/dL Urine Color Dark-red Yellow Urine Clarity Ex.turbid Clear Urine pH 6.0 5.0-9.0 Urine Specific Cuddy 1.021 1.001-1.035 Urine Protein Trace H Negative Urine Ketones Negative Negative Urine Blood Negative Negative /uL Urine Nitrite Negative Negative Urine Bilirubin Negative Negative Urine Urobilinogen Normal Negative mg/dL Urine Leukocyte Esterase Trace Negative /uL Urine RBC 124 0 - 4 /hpf Urine WBC 18 0 - 5 /hpf Urine Squamous Epithelial Cells Many <5 /hpf Urine Bacteria None seen None Seen /hpf Urine Mucus Few None Seen Urine Yeast (Budding) Occasional None Seen /hpf Urine Glucose Normal Normal mg/dL Urine Test Negative Negative [facility] [address] [facility] [address] Ph: [phone] DIAGNOSTIC IMAGING Diagnostic Imaging Report : [id number] Signed PATIENT: PRO ANGULO ACCT: [id number] UNIT: [id number] : 1995 LOC: ER ROOM / BED: / AGE / SEX: 28 / F ADM STATUS: REG ER SERVICE 1353 ORDERING PHYSICIAN: ARNALDO LEO MD PROCEDURE(s): ABPL - CT AB PEL WO CON-NO ORAL OR IV REASON: right flank pain ORDER NUMBER(s): [id number], ACCESSION NUMBER(s): [id number] Exam: CT CT AB PEL WO CON-NO ORAL OR IV History: right flank pain Comparison Study: None available at time of dictation. TECHNIQUE: Multidetector CT of the abdomen was performed from lung bases to pubic symphysis. Imaging was performed without IV contrast. Axial, coronal and sagittal multiplanar reformats were obtained from the axial data set by the technologist. Radiation Dose Information: CT Dose: CTDI volume is 6.42 mGy. Dose-length product is 314.02 mGy*cm FINDINGS: Evaluation of solid organs is limited due to lack of intravenous contrast use. Findings: Lung Bases: No acute or significant lung base finding. Normal heart size. No pleural or pericardial effusion. Liver: The liver is normal in size. No focal lesions. Gallbladder and Biliary Tree: Gallbladder has been surgically removed. Spleen: Unremarkable Pancreas: The pancreas is grossly normal in appearance. Adrenal Glands: Unremarkable Kidneys: Kidneys are grossly normal without calculi or hydronephrosis. Bladder: Grossly unremarkable for degree of distention. Bowel: The stomach is grossly normal in appearance. Small bowel and colon are normal in caliber and distribution. Stool noted throughout the colon. The appendix is not visualized; however, no secondary findings of acute appendicitis identified. Ascites: Absent Lymphadenopathy: No mesenteric, retroperitoneal or periportal lymphadenopathy. Abdominal Wall and Mesentery: Unremarkable. Vasculature: The visualized abdominal aorta is normal in size and caliber. Evaluation of abdominal and pelvic vessels is limited due to lack of intravenous contrast. Pelvic Organs: Unremarkable Musculoskeletal: No aggressive focal bony lesions, acute fractures or dislocation. Soft tissues: Unremarkable IMPRESSION: 1. Gallbladder has been surgically removed. 2. No CT findings of bowel obstruction 3. No nephrolithiasis or hydronephrosis. 4. Stool noted throughout the colon Radiation optimization: All CT scans at this facility use at least one of these dose optimization techniques: automated exposure control mA and/or kV adjustment per patient size (includes targeted exams where dose is matched to clinical indication) or iterative reconstruction. HS:Y ATED BY: DAVID GIBBS Jr., DO DICTATED DATE/TIME: 07/27/241409 SIGNED BY: DAVID GIBBS Jr., SIGNED DATE/TIME: 07/27/241409 CC: Time of 1ST Reevaluation: 15:30 Reevaluation 1ST: Unchanged Patient Education/Counseling: Diagnosis, Treatment Family Education/Counseling: No Family Present Additional Information - I reviewed the following notes from patient's past medical encounters: - The following tests were ordered, and results were reviewed by me: (Labs, X- Ray, EKG): CT abdomen and pelvis, CBC, BMP, urine test, UA - Additional information was gathered from interviewing the following independent Historian: (Family, Other Providers, EMT): none - I reviewed and agreed with the following test results read by other provider: (X-ray, CT, US): radiologist - I discussed treatments and results with medical personnel and: (consultants, family): none Departure 1 Departure Time of Disposition: 22:04 (Patient with a urinary tract infection. Otherwise feeling well while to go home. We will discharge patient home with outpatient follow up) Impression: Primary Impression: Acute cystitis Qualified Codes: N30.01 - Acute cystitis with hematuria Disposition: HOME / SELF CARE / HOMELESS Condition: Stable Additional Instructions: You have a urinary tract infection. You were prescribed antibiotics. Please take as directed. You can take Tylenol Motrin as needed for pain. It is important that he follow up with the regular doctor within 1 week to ensure you are doing better. If your symptoms worsen or you have any other concerns then please return to the emergency room. e-Prescriptions Cefdinir (Cefdinir) 300 Mg Cap 1 CAP PO BID for 7 Days, #14 CAP Prov: ARNALDO LEO MD 07/27/24 Critical Care Note Critical Care Time?: No Stability Stability form required: No Heart Score Heart Score: Heart Score Response (Comments) Value History N/A 0 EKG N/A 0 Age N/A 0 Risk Factors N/A 0 Troponin N/A 0 Total 0 I personally scribed for ARNALDO LEO MD ([email or web address]) on 07/27/24 at 15:44. El ectronically submitted by Joey Brady ([email or web address]). ARNALDO LEO MD Jul 27, 2024 15:44
[2024-07-27 16:28] VITALS: BP 117/71; PULSE 83; RESP 17; TEMP 98; O2SAT 99
[2024-07-27] MEDS: cefTRIAXone W LIDOCAINE 1 GM IM IM ONE ×2 (16:42)
== END 2024-07-27 16:58 | disposition home or self-care (01) ==
LOC: ER 10:01
DX: N30.01 Acute cystitis with hematuria (principal); Z88.5 Allergy status to narcotic agent; Z90.49 Acquired absence of other specified parts of digestive tract; Z32.02 Encounter for pregnancy test, result negative
CPT/HCPCS: 36415; 74176; 80048; 81001; 81025; 85025; 96372; 99285; J0696